=== PATIENT | female | born 1995 | race Caucasian/White ===

== ENCOUNTER 2018-12-27 09:50 | Emergency (ER) | payer OTHER ==
[~2018-12-27] VITALS: Ht 157.5 cm; Wt 92.1 kg
--- NOTE | 2018-12-27 09:56 | NUR ---
pt is in room #2a. dr fernando evaluated the pt.
--- NOTE | 2018-12-27 10:11 | NUR ---
PT WAS EVALUATED BY DR ARREOLA. PT WAS D/C'D TO HOME. D/C INSTRUCTIONS GIVEN TO THE PT AND TO HER MOYHER.
[2018-12-27 10:12] VITALS: BP 138/79
== END 2018-12-27 10:13 | disposition home or self-care (01) ==
LOC: ER 09:50
DX: B34.9 Viral infection, unspecified (principal); F17.200 Nicotine dependence, unspecified, uncomplicated
CPT/HCPCS: A4663

== ENCOUNTER 2023-10-22 20:18 | Emergency (ER) | payer OTHER ==
[~2023-10-22] VITALS: Ht 157.5 cm; Wt 99.8 kg
[2023-10-22] MEDS ORDERED: ALPRAZOLAM 0.25 MG TABLET PO ONE (21:00)
[2023-10-22] MEDS ORDERED: PSEUDOEPHEDRINE HCL 30 MG TABLET PO ONE (21:00)
[2023-10-22] MEDS ORDERED: ALPRAZOLAM 0.25 MG TABLET ONE (21:05)
[2023-10-22] MEDS ORDERED: PSEUDOEPHEDRINE HCL 30 MG TABLET ONE (21:05)
[2023-10-22 21:30] VITALS: BP 158/103; O2SAT 96
== END 2023-10-22 21:30 | disposition home or self-care (01) ==
LOC: ER 20:22
DX: J34.89 Other specified disorders of nose and nasal sinuses (principal); F41.8 Other specified anxiety disorders; E11.9 Type 2 diabetes mellitus without complications; Z20.822 Contact with and (suspected) exposure to COVID-19
CPT/HCPCS: A4606; A4663